=== PATIENT | female | born 1970 | race Caucasian/White ===

== ENCOUNTER 2017-12-29 08:07 | Emergency (ER) | payer OTHER ==
[~2017-12-29] VITALS: Ht 167.6 cm; Wt 104.3 kg
[~2017-12-29 08:07] MED LIST: NAPROSYN500 MG PO; NORCO 5-325 TA1 EAC1 PO
[2017-12-29] MEDS ORDERED: UNICOMPLEX M TA1 TA1 PO (08:37)
[2017-12-29 08:56] LABS: URINE BLOOD 1+ (Negative); URINE CLARITY CLEAR; URINE COLOR ORANGE; URINE LEUKOCYTES-REFLEX TRACE (Negative); URINE UROBILINOGEN >= 8.0 E.U./dl (0.2-1.0)
[2017-12-29 09:13] LABS: SSA (PROTEIN CONFIRMATORY) NEGATIVE (Negative); URINE NITRITE-REFLEX POSITIVE (Negative); URINE SPECIFIC GRAVITY 1.026 (1.005-1.030)
[2017-12-29 09:14] LABS: URINE GLUCOSE-RANDOM ND (Negative); URINE PROTEIN ND (Negative); URINE REDUCING SUBSTANCE NEGATIVE (Negative)
[2017-12-29 09:15] LABS: ACETEST (KETONE CONFIRMATORY) Negative (Negative); ICTOTEST (BILI CONFIRMATORY) Negative (Negative); URINE BILIRUBIN ND (Negative); URINE KETONES ND (Negative)
[2017-12-29 09:16] LABS: MUCUS 0-3 Light strn/LPF (None Seen); SQUAMOUS >10 Many /LPF (0-3)
[2017-12-29 09:18] LABS: CASTS None Seen /LPF (None Seen); CRYSTALS None Seen /LPF (None Seen); URINE RBC 3-10 Few /HPF (0-2); URINE WBC-REFLEX 6-15 Few /HPF (0-5)
[2017-12-29] MEDS ORDERED: KEFLEX500 M1 PO (09:48)
[2017-12-29] MEDS ORDERED: PYRIDIUM200 MG PO (09:48)
[2017-12-29 09:54] VITALS: BP 170/85
== END 2017-12-29 09:55 | disposition home or self-care (01) ==
LOC: M.ERS 08:07
PROVIDERS: Personal Emergency Response Attendant
DX: N39.0 Urinary tract infection, site not specified (principal); F17.210 Nicotine dependence, cigarettes, uncomplicated